=== PATIENT | female | born 1950 | race Caucasian/White ===

== ENCOUNTER → 2020-11-30 | Outpatient (CLI) | payer MEDICARE ==
[~2020-11-30] MED LIST: ARICEPT10 MG PO; ASPIR 8181 MG PO; BUSPAR 5MG TABLE5 MG PO; LEVOTHYROXINE25 MCG PO; LEXAPRO TAB 1010 MG PO; PRAVASTATIN SOD80 MG PO; QUINAPRIL HCL20 MG PO; RANITIDINE HCL150 M1 PO; TRAZODONE HCL150 MG PO
== END ==
LOC: MAMO 07-11 09:30
DX: Z12.31 Encounter for screening mammogram for malignant neoplasm of breast (principal)
CPT/HCPCS: 77063; 77067

== ENCOUNTER → 2021-01-08 | Outpatient (CLI) | payer MEDICARE ==
[2021-01-08 11:04] LABS: HEMOGLOBIN 12.4 gm/dl (12.3-15.3); RED BLOOD COUNT 3.92 M/UL (4.00-5.10); WHITE BLOOD COUNT 5.1 K/UL (4.5-11.0)
[2021-01-08 11:31] LABS: BUN/CREATININE RATIO 29 (0-10)
== END ==
LOC: LAB 10:24
PROVIDERS: Internal Medicine
DX: E78.5 Hyperlipidemia, unspecified (principal)
CPT/HCPCS: 36415; 80048; 80061; 80076; 84443; 85025

== ENCOUNTER → 2021-03-21 | Outpatient (CLI) | payer MEDICARE, SELFPAY | LOC: LAB 15:57 | DX: R10.9 Unspecified abdominal pain (principal) | CPT/HCPCS: 82150; 83690 ==

== ENCOUNTER → 2021-07-12 | Outpatient (CLI) | payer MEDICARE, SELFPAY ==
[2021-07-12 12:15] LABS: HEMOGLOBIN 12.3 gm/dl (12.3-15.3); RED BLOOD COUNT 3.85 M/UL (4.00-5.10); WHITE BLOOD COUNT 4.9 K/UL (4.5-11.0)
[2021-07-12 12:43] LABS: BUN/CREATININE RATIO 20 (0-10)
== END ==
LOC: LAB 11:49
PROVIDERS: Internal Medicine
DX: I10 Essential (primary) hypertension (principal)
CPT/HCPCS: 36415; 80048; 80061; 80076; 84443; 85025

== ENCOUNTER → 2022-01-09 | Outpatient (CLI) | payer MEDICARE ==
[2022-01-09 12:57] LABS: HEMOGLOBIN 12.3 gm/dl (12.3-15.3); RED BLOOD COUNT 3.93 M/UL (4.00-5.10); WHITE BLOOD COUNT 4.7 K/UL (4.5-11.0)
== END ==
LOC: LAB 12:19
PROVIDERS: Internal Medicine
DX: E78.5 Hyperlipidemia, unspecified (principal)
CPT/HCPCS: 36415; 80048; 80061; 80076; 84443; 85025

== ENCOUNTER → 2022-01-22 | Outpatient (CLI) | payer MEDICARE | LOC: EMI 01-21 09:00 | DX: G45.9 Transient cerebral ischemic attack, unspecified (principal); R42 Dizziness and giddiness; I67.82 Cerebral ischemia | CPT/HCPCS: 70553; A9577 ==

== ENCOUNTER → 2022-02-13 | Outpatient (CLI) | payer MEDICARE | LOC: MAMO 01-23 09:30 | DX: Z12.31 Encounter for screening mammogram for malignant neoplasm of breast (principal) | CPT/HCPCS: 77063; 77067 ==

== ENCOUNTER → 2022-04-10 | Outpatient (CLI) | payer MEDICARE | LOC: US 04-05 14:00 | DX: I10 Essential (primary) hypertension (principal); R06.02 Shortness of breath; R42 Dizziness and giddiness; G45.9 Transient cerebral ischemic attack, unspecified; R09.89 Other specified symptoms and signs involving the circulatory and respiratory systems; I08.3 Combined rheumatic disorders of mitral, aortic and tricuspid valves | CPT/HCPCS: 93880 ==